=== PATIENT | female | born 2005 | race Hispanic/Latino ===

== ENCOUNTER 2023-08-31 13:08 | Outpatient (CLI) | payer OTHER | END 2023-08-31 13:09 | disposition home or self-care (01) | LOC: CSHULT 13:08 | PROVIDERS: ATTEND Nurse Practitioner Women's Health | DX: Z34.82 Encounter for supervision of other normal pregnancy, second trimester (principal); Z3A.22 22 weeks gestation of pregnancy | CPT/HCPCS: 76805 ==

== ENCOUNTER 2023-12-24 21:50 | Day surgery (SDC) | payer MEDICAID ==
[2023-12-24 22:12] VITALS: BMI 29.0
[2023-12-24] MEDS ORDERED: hydrALAZINE 20 MG/ML VIAL SLOW IVP PRN (22:50)
[2023-12-25 00:36] LABS: Bilirubin Neg (Negative); Blood, Urine Negative (Negative); Clarity Clear (Clear); Glucose, Urine (Dipstick) Normal (Negative); Ketone, Urine Negative (Negative); Leukocyte Negative (Negative); Nitrite Negative (Negative); Protein, Urine (Dipstick) Negative (Neg-Trace); Specific Gravity, Urine 1.005 (1.005-1.030); Urobilinogen Normal mg/dL (Less than 2)
[2023-12-25 00:43] LABS: Bacteria/HPF None Seen HPF (None Seen); CAUTI Indications for Culture Pregnancy; RBC/HPF None Seen HPF (0-3); Squamous Epithelial 0-3 HPF (0-3); WBC/HPF None Seen HPF (0-3)
[2023-12-25 00:45] LABS: Urine Culture Reflex Yes Yes
== END 2023-12-24 23:20 | disposition home or self-care (01) ==
LOC: CSHLD/OP 21:50
PROVIDERS: ATTEND Obstetrics & Gynecology
DX: O47.1 False labor at or after 37 completed weeks of gestation (principal); O99.343 Other mental disorders complicating pregnancy, third trimester; F32.A Depression, unspecified; O34.211 Maternal care for low transverse scar from previous cesarean delivery; Z79.899 Other long term (current) drug therapy; Z3A.37 37 weeks gestation of pregnancy
CPT/HCPCS: 76815; 81001; 87086

== ENCOUNTER 2024-01-02 05:47 | Inpatient (IN) | payer MEDICAID, OTHER ==
[2024-01-02] MEDS ORDERED: Methylergonovine 0.2 MG/ML VIAL IM PRN (06:00)
[2024-01-02] MEDS ORDERED: Promethazine HCl 25 MG/ML VIAL IM PRN ×2 (06:00→06:55)
[2024-01-02] MEDS ORDERED: Misoprostol 200 MCG TAB PR PRN (06:00)
[2024-01-02] MEDS ORDERED: Ondansetron PF 4 MG/2 ML Vial IVP PRN ×4 (06:00→11:02)
[2024-01-02] MEDS ORDERED: Carboprost 250 MCG/ML AMP IM PRN (06:00)
[2024-01-02] MEDS ORDERED: Diphenoxylate HCl/Atropine Tablet PO PRN (06:00)
[2024-01-02] MEDS ORDERED: Tranexamic Acid 1,000 MG/10 ML VIAL IVP PRN (06:00)
[2024-01-02] MEDS ORDERED: Lactated Ringer's 1,000 ML IV SCH (06:00)
[2024-01-02] MEDS ORDERED: hydrALAZINE 20 MG/ML VIAL SLOW IVP PRN ×2 (06:00→11:02)
[2024-01-02 06:09] VITALS: BMI 30.1
[2024-01-02 06:49] LABS: Hematocrit 34.8 % (34.9-44.5); Hemoglobin 11.6 g/dL (12.0-15.5); Mean Corpuscular HGB CONC 33.3 g/dL (32.0-36.0); Mean Corpuscular Hemoglobin 25.6 pg (27.0-33.0); Mean Corpuscular Volume 76.7 fL (81.6-98.3); Mean Platelet Volume 10.1 fL (7.4-10.4); Platelet Count 192 10x3/uL (150-450); RBC Distribution Width 15.1 % (11.5-14.5); Red Blood Cell (RBC) Count 4.54 10x6/uL (3.90-5.03); White Blood Cell (WBC) Count 8.8 10x3/uL (3.5-10.5)
[2024-01-02] MEDS ORDERED: Naloxone HCl 0.4 mg/ml Vial IVP PRN ×2 (06:55)
[2024-01-02] MEDS ORDERED: diphenhydrAMINE 50 MG/ML VIAL IVP PRN (06:55)
[2024-01-02] MEDS ORDERED: Meperidine HCl/PF 25 MG (1 mL) VIAL SLOW IVP PRN (06:55)
[2024-01-02] MEDS ORDERED: Ketorolac Tromethamine 30 MG (1 mL) VIAL IVP PRN (06:55)
[2024-01-02] MEDS ORDERED: HYDROmorphone 0.5 MG/0.5 ML SYRINGE SLOW IVP PRN (06:55)
[2024-01-02] MEDS ORDERED: fentaNYL 50 mcg/mL 1 mL Vial SLOW IVP PRN (06:55)
[2024-01-02] MEDS ORDERED: Naloxone HCl 0.4 mg/ml Vial IV PRN (06:55)
[2024-01-02] MEDS ORDERED: Moisturizing Cream (Eucerin) 113 GM JAR TOP PRN (06:55)
[2024-01-02] MEDS ORDERED: Ketorolac Tromethamine 30 MG (1 mL) VIAL IVP SCH (07:00)
[2024-01-02] MEDS ORDERED: Communication Order-Pharmacy FS SCH (07:00)
[2024-01-02 07:18] LABS: HBsAg Index 0.17 S/CO (0-0.99); Hep B Surf Ag - L&D Non-Reactive S/CO (NonReactive)
[2024-01-02 07:19] LABS: Syphilis Antibody Nonreactive (Nonreactive); Syphilis Antibody Index 0.22 S/CO (<1.00 Non-Reactive)
[2024-01-02] MEDS: fentaNYL 50 mcg/mL 1 mL Vial ONE (07:19)
[2024-01-02] MEDS: Ondansetron PF 4 MG/2 ML Vial ONE (07:19)
[2024-01-02] MEDS: Dexamethasone 4 mg/ml Vial ONE (07:19)
[2024-01-02] MEDS: Morphine PF 10 MG/10 ML VIAL ONE (07:19)
[2024-01-02] MEDS: Oxytocin 10 UNITS/ML VIAL ONE (07:19)
[2024-01-02] MEDS: PHENYLEPHRINE-NS 100 MCG/ML 10 ML SYRINGE ONE (07:19)
[2024-01-02] MEDS: Bicitra 30 ML UDCUP PO PRN (07:27)
[2024-01-02] MEDS: Famotidine/PF 20 mg/2ml Vial SLOW IVP PRN (07:27)
[2024-01-02] MEDS: CEFAZOLIN 2 GM in Sodium Chloride 0.9% 100 ML IVPB SCH (07:27)
[2024-01-02] MEDS: Bicitra 30 ML UDCUP ONE (09:13)
[2024-01-02] MEDS: Oxytocin 30 units/NS 500 ML 500 ML IV SCH (09:14)
[2024-01-02] MEDS ORDERED: Bisacodyl 10 MG SUPP PR PRN (11:02)
[2024-01-02] MEDS ORDERED: Lanolin Ointment 7 GM TUBE TOP PRN (11:02)
[2024-01-02] MEDS ORDERED: diphenhydrAMINE 25 MG CAP PO PRN (11:02)
[2024-01-02] MEDS: Ketorolac Tromethamine 30 MG (1 mL) VIAL IVP SCH (13:14)
[2024-01-02] MEDS: Ferrous Sulfate 325 MG TAB PO SCH (13:24)
[2024-01-02] MEDS: Docusate 100 MG CAP PO SCH ×2 (13:24→19:33)
[2024-01-02] MEDS: Prenatal Vitamin 1 TAB PO SCH (13:24)
[2024-01-02] MEDS ORDERED: Meperidine HCl/PF 25 MG (1 mL) VIAL IM PRN (19:00)
[2024-01-02] MEDS ORDERED: HYDROcodone/Acetaminophen 5/325 mg Tablet PO PRN (19:00)
[2024-01-02] MEDS: Simethicone Chewable 80 MG TAB PO PRN (19:33)
[2024-01-03] MEDS: Ferrous Sulfate 325 MG TAB PO SCH (01:07)
[2024-01-03 03:20] LABS: Hematocrit 28.9 % (34.9-44.5); Hemoglobin 9.7 g/dL (12.0-15.5); Mean Corpuscular HGB CONC 33.6 g/dL (32.0-36.0); Mean Corpuscular Volume 77.5 fL (81.6-98.3); Mean Platelet Volume 10.1 fL (7.4-10.4); Platelet Count 171 10x3/uL (150-450); RBC Distribution Width 15.1 % (11.5-14.5); Red Blood Cell (RBC) Count 3.73 10x6/uL (3.90-5.03)
[2024-01-03] MEDS: HYDROcodone/Acetaminophen 5/325 mg Tablet PO PRN (07:46)
[2024-01-03] MEDS: Prenatal Vitamin 1 TAB PO SCH (07:46)
[2024-01-03] MEDS: Ibuprofen 800 MG TAB PO SCH (14:27)
[2024-01-04] MEDS: Boostrix 0.5 ML (Tdap) VIAL (>/=7 yrs of age) IM ONE (07:04)
[2024-01-04 07:41] VITALS: BP 118/73; TEMP 98
== END 2024-01-04 18:00 | disposition home or self-care (01) | DRG 788 ==
LOC: CSHLD 05:47 → CSHPP 10:45
PROVIDERS: ADMIT Family Medicine; ATTEND Family Medicine
PROC: 10D00Z1 Extraction of Products of Conception, Low, Open Approach (ICD-10-PCS; principal; 2024-01-02)
DX: O34.211 Maternal care for low transverse scar from previous cesarean delivery (principal); Z3A.39 39 weeks gestation of pregnancy; Z37.0 Single live birth
CPT/HCPCS: 85027; 86780; 86850; 86900; 86901; 87340; J1100; J1885; J2274; J2405; J2590; J3010; J3490; S0028